=== PATIENT | female | born 1965 | race Caucasian/White ===

== ENCOUNTER 2017-07-02 23:28 | Emergency (ER) | payer OTHER ==
[~2017-07-02] VITALS: Ht 160 cm; Wt 55.5 kg
[2017-07-03 00:24] LABS: MCHC 33.4 G/DL (30.0-36.0); MCV 89.7 FL (83-99); MEAN PLAT.VOLUME 9.9 uM^3 (9.5-12.4); PLATELET COUNT 181 K/uL (156-360); RBC DIS.WIDTH-CV 12.5 % (11.8-14.6); RBC DIS.WIDTH-SD 41.2 % (39-53); RED BLOOD COUNT 4.57 M/uL (3.80-5.20); WHITE BLOOD COUNT 6.1 K/uL (4.1-10.2)
[2017-07-03 00:36] LABS: CHLORIDE 108 mEq/L (99-109); POTASSIUM 3.7 mEq/L (3.7-5.4); SODIUM 142 mEq/L (136-147)
[2017-07-03 00:37] LABS: GLUCOSE 97 mg/dL (70-99)
[2017-07-03 00:39] LABS: ANION GAP 11 MEQ/L (2-14)
[2017-07-03 00:40] LABS: SERUM ETHYL ALCOHOL < 10 mg/dL
[2017-07-03 00:41] LABS: GFR ESTIMATE (CALCULATED) > 59 mL/min/
[2017-07-03 00:42] LABS: UREA NITROGEN (BUN) 10 mg/dL (9-23)
[2017-07-03 01:00] LABS: AMPHETAMINE NEGATIVE (500 ng/mL); BARBITURATES NEGATIVE (200 ng/mL); BENZODIAZEPINES NEGATIVE (150 ng/mL); COCAINE NEGATIVE (150 ng/mL); INTERNAL CONTROLS VALID? YES; METHADONE NEGATIVE (200 ng/mL); METHAMPHETAMINE NEGATIVE (500 ng/mL); OPIATES (MORPHINE) NEGATIVE (100 ng/mL); OXYCODONE NEGATIVE (100 ng/mL); PHENCYCLIDINE NEGATIVE (25 ng/mL); PROPOXYPHENE NEGATIVE (300 ng/mL); THC CANNABINOIDS NEGATIVE (50 ng/mL); TRICYCLIC ANTIDEPRESSANTS NEGATIVE (300 ng/mL)
[2017-07-03 03:18] VITALS: BP 162/90
== END 2017-07-03 03:19 | disposition home or self-care (01) ==
LOC: EME → EDBD 23:28 → EME 23:28
DX: F32.9 Major depressive disorder, single episode, unspecified (principal); F43.9 Reaction to severe stress, unspecified; F43.21 Adjustment disorder with depressed mood; F43.10 Post-traumatic stress disorder, unspecified
CPT/HCPCS: 80048; 85027; 90837; 99281; 99284; G0480